=== PATIENT | male | born 1980 | race Caucasian/White ===

== ENCOUNTER 2017-12-30 12:44 | Inpatient (IN) | payer OTHER ==
[~2017-12-30] VITALS: Ht 175.3 cm; Wt 61.7 kg
[2017-12-30 13:38] LABS: BASOPHILS 0.3 % (0-2); EOSINOPHILS 0.1 % (0-7); HEMATOCRIT 46.7 % (42.0-54.0); IMMATURE GRANULOCYTES 0.1 % (0-5); LYMPHOCYTES 12.5 % (15-50); MCH 31.6 pg (26.0-34.0); MCHC 34.3 g/dL (31.0-37.0); MCV 92.1 fL (80.0-100.0); MEAN PLATELET VOLUME 9.9 fL (7.4-10.4); MONOCYTES 7.6 % (2-11); NEUTROPHILS 79.4 % (40-80); PLATELET COUNT 201 10x3/uL (130-400); RBC 5.07 10x6/uL (4.20-6.10); RDW 13.5 % (11.5-14.5); WBC 7.9 10x3/uL (4.8-10.8)
[2017-12-30 13:47] LABS: APPEARANCE CLEAR (CLEAR); BACTERIA FEW /hpf (NONE SEEN); BILIRUBIN NEGATIVE (NEGATIVE); COLOR YELLOW (YELLOW); EPITHELIAL CELLS OCC /hpf (0-5); GLUCOSE 1000 mg/dL (NEGATIVE); KETONE LARGE mg/dL (NEGATIVE); NITRITE NEGATIVE (NEGATIVE); PROTEIN 1+ mg/dL (NEGATIVE); RED CELLS - URINE RARE /hpf (0-5); UROBILINOGEN NORMAL (NORMAL); WHITE CELLS - URINE OCC /hpf (0-5)
[2017-12-30 13:56] LABS: ALBUMIN 4.6 g/dL (3.4-5.0); ALKALINE PHOSPHATASE 83 U/L (46-116); ALT (SGPT) 71 U/L (10-68); AMYLASE - SERUM 119 U/L (25-115); BILIRUBIN - TOTAL 1.04 mg/dL (0.2-1.3); CALC OSMOLALITY 281 mosm/kg (275-300); CALCIUM 9.6 mg/dL (8.5-10.1); CARBON DIOXIDE 28.6 mmol/L (21.0-32.0); CHLORIDE - SERUM 95 mmol/L (98-107); CREATININE - SERUM 0.7 mg/dL (0.6-1.3); GLUCOSE 275 mg/dL (74-106); LIPASE 1251 U/L (73-393); POTASSIUM - SERUM 4.9 mmol/L (3.5-5.1); SODIUM 136 mmol/L (136-145); UREA NITROGEN 13 mg/dL (7-18); eGFR NON AFRICAN AMERICAN > 90 mL/min (90-120)
[2017-12-30 23:56] VITALS: BP 161/91; BMI 20.1
[2017-12-31 04:23] VITALS: BP 182/99
[2017-12-31 08:37] VITALS: BP 191/104
[2017-12-31 08:58] VITALS: Ht 175.3 cm; Wt 61.7 kg
[2017-12-31 12:45] VITALS: BP 186/98
[2017-12-31 16:43] VITALS: BP 187/109
[2017-12-31 19:51] VITALS: BP 176/103
[2018-01-01 00:10] VITALS: BP 179/107
[2018-01-01 04:45] VITALS: BP 158/99
[2018-01-01 06:06] LABS: BASOPHILS 0.1 % (0-2); EOSINOPHILS 0 % (0-7); HEMATOCRIT 47.9 % (42.0-54.0); HEMOGLOBIN 16.1 g/dL (13.5-17.5); IMMATURE GRANULOCYTES 0.3 % (0-5); LYMPHOCYTES 9.3 % (15-50); MCH 31.9 pg (26.0-34.0); MCHC 33.6 g/dL (31.0-37.0); MEAN PLATELET VOLUME 10.9 fL (7.4-10.4); MONOCYTES 7.6 % (2-11); NEUTROPHILS 82.7 % (40-80); PLATELET COUNT 183 10x3/uL (130-400); RBC 5.04 10x6/uL (4.20-6.10); RDW 13.7 % (11.5-14.5)
[2018-01-01 06:35] LABS: ALBUMIN 4.3 g/dL (3.4-5.0); ALKALINE PHOSPHATASE 90 U/L (46-116); BILIRUBIN - TOTAL 0.95 mg/dL (0.2-1.3); CALCIUM 9.1 mg/dL (8.5-10.1); CHLORIDE - SERUM 95 mmol/L (98-107); CHOL - HDL RATIO 2.6 ratio (2.3-4.9); CHOLESTEROL, TOTAL 303 mg/dL (0-200); CREATININE - SERUM 0.8 mg/dL (0.6-1.3); HDL CHOLESTEROL 118 mg/dL (32-96); LDL CHOLESTEROL 161 mg/dL (0-100); LDL-HDL RATIO 1.4 ratio (1.5-3.5); LIPASE 1420 U/L (73-393); POTASSIUM - SERUM 4.8 mmol/L (3.5-5.1); PROTEIN - SERUM 8.9 g/dL (6.4-8.2); SODIUM 133 mmol/L (136-145); TRIGLYCERIDE 124 mg/dL (30-200); UREA NITROGEN 12 mg/dL (7-18); eGFR NON AFRICAN AMERICAN > 90 mL/min (90-120)
[2018-01-01 06:36] LABS: ALT (SGPT) 50 U/L (10-68); AMYLASE - SERUM 220 U/L (25-115); CALC OSMOLALITY 269 mosm/kg (275-300); GLUCOSE 167 mg/dL (74-106)
[2018-01-01 06:39] LABS: WBC 14.6 10x3/uL (4.8-10.8)
[2018-01-01 08:17] VITALS: BP 153/101
[2018-01-01 11:47] VITALS: BP 150/96
[2018-01-01 15:41] VITALS: BP 177/101
[2018-01-01 21:41] VITALS: BP 150/93
[2018-01-02] VITALS (7 sets, daily range): BP systolic 122–147; BP diastolic 76–97
[2018-01-03 05:13] VITALS: BP 110/70
[2018-01-03 05:38] LABS: BASOPHILS 0.5 % (0-2); EOSINOPHILS 1.4 % (0-7); HEMATOCRIT 39.3 % (42.0-54.0); HEMOGLOBIN 13.3 g/dL (13.5-17.5); IMMATURE GRANULOCYTES 0.3 % (0-5); LYMPHOCYTES 27.6 % (15-50); MCHC 33.8 g/dL (31.0-37.0); MCV 91.6 fL (80.0-100.0); MEAN PLATELET VOLUME 10.8 fL (7.4-10.4); MONOCYTES 9.9 % (2-11); NEUTROPHILS 60.3 % (40-80); RBC 4.29 10x6/uL (4.20-6.10); RDW 12.9 % (11.5-14.5); WBC 6.5 10x3/uL (4.8-10.8)
[2018-01-03 05:42] LABS: PLATELET COUNT 124 10x3/uL (130-400)
[2018-01-03 05:44] LABS: AMYLASE - SERUM 76 U/L (25-115); CALC OSMOLALITY 278 mosm/kg (275-300); CALCIUM 8.5 mg/dL (8.5-10.1); CARBON DIOXIDE 29.3 mmol/L (21.0-32.0); CHLORIDE - SERUM 99 mmol/L (98-107); CREATININE - SERUM 0.7 mg/dL (0.6-1.3); LIPASE 380 U/L (73-393); POTASSIUM - SERUM 3.3 mmol/L (3.5-5.1); SODIUM 136 mmol/L (136-145); UREA NITROGEN 10 mg/dL (7-18); eGFR NON AFRICAN AMERICAN > 90 mL/min (90-120)
[2018-01-03 05:54] LABS: GLUCOSE 242 mg/dL (74-106)
[2018-01-03 09:20] VITALS: BP 125/79
[2018-01-03 14:38] VITALS: BP 106/70
[2018-01-03] MEDS ORDERED: LANTUS SOL100 UNIT/1 SC (15:25)
[2018-01-03 17:07] VITALS: BP 135/80
== END 2018-01-03 18:14 | disposition home or self-care (01) | DRG 440 ==
LOC: D.ER 12:44 → OBSVTIME 17:47 → D.MS 17:47
PROVIDERS: Family Medicine
DX: K85.90 Acute pancreatitis without necrosis or infection, unspecified (principal); K86.0 Alcohol-induced chronic pancreatitis; I10 Essential (primary) hypertension; E11.9 Type 2 diabetes mellitus without complications; S39.012A Strain of muscle, fascia and tendon of lower back, initial encounter; X50.0XXA Overexertion from strenuous movement or load, initial encounter; F10.10 Alcohol abuse, uncomplicated; F12.90 Cannabis use, unspecified, uncomplicated; F41.8 Other specified anxiety disorders

== ENCOUNTER 2018-07-18 07:55 | Emergency (ER) | payer SELFPAY ==
[~2018-07-18] VITALS: Ht 175.3 cm; Wt 78.6 kg
[~2018-07-18 07:55] MED LIST: LANTUS SOL100 UNIT/1 SC
[2018-07-18 08:00] VITALS: Ht 175.3 cm; Wt 78.6 kg
[2018-07-18] MEDS ORDERED: NAPROSYN500 MG PO (09:14)
[2018-07-18 09:25] VITALS: BP 142/80
== END 2018-07-18 09:26 | disposition home or self-care (01) ==
LOC: D.ER 07:55
DX: M77.9 Enthesopathy, unspecified (principal); G40.909 Epilepsy, unspecified, not intractable, without status epilepticus; E11.9 Type 2 diabetes mellitus without complications; I10 Essential (primary) hypertension

== ENCOUNTER 2019-04-30 16:35 | Inpatient (IN) | payer MEDICAID ==
[~2019-04-30] VITALS: Ht 175.3 cm; Wt 63.5 kg
[~2019-04-30 16:35] MED LIST changes: +NAPROSYN500 MG PO
[2019-04-30 17:01] LABS: BASOPHILS 0.2 % (0-2); EOSINOPHILS 1.3 % (0-7); HEMATOCRIT 46.6 % (42.0-54.0); HEMOGLOBIN 15.8 g/dL (13.5-17.5); IMMATURE GRANULOCYTES 0.2 % (0-5); LYMPHOCYTES 14.5 % (15-50); MCH 32.4 pg (26.0-34.0); MCHC 33.9 g/dL (31.0-37.0); MCV 95.5 fL (80.0-100.0); MEAN PLATELET VOLUME 10.6 fL (7.4-10.4); MONOCYTES 8.2 % (2-11); NEUTROPHILS 75.6 % (40-80); PLATELET COUNT 253 10x3/uL (130-400); RBC 4.88 10x6/uL (4.20-6.10); RDW 12.9 % (11.5-14.5); WBC 12.5 10x3/uL (4.8-10.8)
[2019-04-30 17:10] LABS: CALC OSMOLALITY 274 mosm/kg (275-300); CALCIUM 9.5 mg/dL (8.5-10.1); CHLORIDE - SERUM 95 mmol/L (98-107); CREATININE - SERUM 0.9 mg/dL (0.6-1.3); GLUCOSE 262 mg/dL (74-106); SODIUM 134 mmol/L (136-145); UREA NITROGEN 8 mg/dL (7-18); eGFR NON AFRICAN AMERICAN > 90 mL/min (90-120)
[2019-04-30 17:19] LABS: ALKALINE PHOSPHATASE 111 U/L (46-116); ALT (SGPT) 27 U/L (10-68); AMYLASE - SERUM 127 U/L (25-115); BILIRUBIN - TOTAL 0.66 mg/dL (0.2-1.3); LIPASE 1229 U/L (73-393); PROTEIN - SERUM 8.3 g/dL (6.4-8.2); TROPONIN-I < 0.017 ng/mL (0.000-0.060)
[2019-04-30 17:32] LABS: APPEARANCE CLEAR (CLEAR); BILIRUBIN NEGATIVE (NEGATIVE); COLOR YELLOW (YELLOW); GLUCOSE 1000 mg/dL (NEGATIVE); KETONE LARGE mg/dL (NEGATIVE); NITRITE NEGATIVE (NEGATIVE); PROTEIN NEGATIVE (NEGATIVE); UROBILINOGEN NORMAL (NORMAL)
[2019-04-30 17:35] LABS: UDS - AMPHET POSITIVE QUAL (NEGATIVE); UDS - BARB NEGATIVE QUAL (NEGATIVE); UDS - BENZO NEGATIVE QUAL (NEGATIVE); UDS - COCAINE NEGATIVE QUAL (NEGATIVE); UDS - OPIATE NEGATIVE QUAL (NEGATIVE); UDS - PCP NEGATIVE QUAL (NEGATIVE); UDS - THC NEGATIVE QUAL (NEGATIVE)
[2019-04-30 20:00] VITALS: BP 147/100
[2019-04-30 21:00] VITALS: BP 143/99
[2019-04-30] MEDS ORDERED: LISINOPRIL20 MG PO (21:37)
--- NOTE | 2019-04-30 21:39 | NUR ---
PT RECEIVED TO UNIT VIA WHEELCHAIR, TRANSFERS SELF TO ICU BED. PT PLACED ON MONITOR AND FLUIDS STARTED. PRN PAIN MEDICATION GIVEN FOR ABDOMINAL PAIN PER MAR. STATES FEELING WARM WITH THERMOSTAT ADJUSTED. NO OTHER NEEDS MADE KNOWN. CALL LIGHT IN REACH. WILL CONTINUE TO OBSERVE.
[2019-04-30 21:56] VITALS: BP 147/100; BMI 20.7
[2019-04-30 22:00] VITALS: BP 133/93
--- NOTE | 2019-04-30 22:31 | NUR ---
BLOOD TRANSFUSION CONTINUES, TOLERATING WELL. RESTING WITH EYES CLOSED AND CHEST RISING. VSS. CALL LIGHT IN REACH. WILL CONTINUE TO OBSERVE.
--- NOTE | 2019-04-30 22:34 | NUR ---
PT RESTING WITH EYES CLOSED AND CHEST RISING. EASILY AWOKEN TO ENTRY OF ROOM. NO S/S OF DISTRESS. NO NEEDS MADE KNOWN. CALL LIGHT IN REACH. WILL CONTINUE TO OBSERVE.
[2019-04-30 23:00] VITALS: BP 123/88
[2019-05-01] VITALS (15 sets, daily range): BP systolic 99–130; BP diastolic 65–94; Ht 175.3 cm; Wt 63.5 kg
[2019-05-01 00:18] LABS: CALC OSMOLALITY 274 mosm/kg (275-300); CALCIUM 8.4 mg/dL (8.5-10.1); CHLORIDE - SERUM 103 mmol/L (98-107); CREATININE - SERUM 0.8 mg/dL (0.6-1.3); POTASSIUM - SERUM 4.1 mmol/L (3.5-5.1); SODIUM 136 mmol/L (136-145); UREA NITROGEN 7 mg/dL (7-18); eGFR NON AFRICAN AMERICAN > 90 mL/min (90-120)
[2019-05-01 00:22] LABS: GLUCOSE 186 mg/dL (74-106)
--- NOTE | 2019-05-01 00:51 | NUR ---
PT COMPLAINS OF ABDOMINAL PAIN 01/07, PRN PAIN MEDICATION GIVEN PER ORDER. WILL CONTINUE TO OBSERVE.
[2019-05-01 04:04] LABS: BASOPHILS 0.3 % (0-2); EOSINOPHILS 2.2 % (0-7); HEMATOCRIT 40.6 % (42.0-54.0); HEMOGLOBIN 13.7 g/dL (13.5-17.5); IMMATURE GRANULOCYTES 0.1 % (0-5); LYMPHOCYTES 27.8 % (15-50); MCH 31.8 pg (26.0-34.0); MCHC 33.7 g/dL (31.0-37.0); MCV 94.2 fL (80.0-100.0); MEAN PLATELET VOLUME 10.5 fL (7.4-10.4); MONOCYTES 8.5 % (2-11); NEUTROPHILS 61.1 % (40-80); RBC 4.31 10x6/uL (4.20-6.10); RDW 12.8 % (11.5-14.5)
[2019-05-01 04:11] LABS: PLATELET COUNT 198 10x3/uL (130-400); WBC 7.2 10x3/uL (4.8-10.8)
[2019-05-01 04:14] LABS: APTT 29.4 SECONDS (22.8-39.4); INR 1.06 (0.85-1.17); PROTIME 13.3 SECONDS (11.6-15.0)
[2019-05-01 04:28] LABS: AMYLASE - SERUM 98 U/L (25-115); CALC OSMOLALITY 277 mosm/kg (275-300); CALCIUM 8.3 mg/dL (8.5-10.1); CARBON DIOXIDE 23.6 mmol/L (21.0-32.0); CHLORIDE - SERUM 106 mmol/L (98-107); CHOL - HDL RATIO 2.3 ratio (2.3-4.9); CHOLESTEROL, TOTAL 144 mg/dL (0-200); CREATININE - SERUM 0.9 mg/dL (0.6-1.3); HDL CHOLESTEROL 63 mg/dL (32-96); LDL CHOLESTEROL 70 mg/dL (0-100); LDL-HDL RATIO 1.1 ratio (1.5-3.5); LIPASE 873 U/L (73-393); MAGNESIUM - SERUM 1.4 mg/dL (1.8-2.4); PHOSPHOROUS 3.2 mg/dL (2.5-4.9); POTASSIUM - SERUM 3.9 mmol/L (3.5-5.1); SODIUM 140 mmol/L (136-145); TRIGLYCERIDE 58 mg/dL (30-200); UREA NITROGEN 7 mg/dL (7-18); eGFR NON AFRICAN AMERICAN > 90 mL/min (90-120)
[2019-05-01 04:40] LABS: GLUCOSE 122 mg/dL (74-106)
[2019-05-01 04:56] LABS: KETONE - SERUM SMALL mg/dL (NEGATIVE)
--- NOTE | 2019-05-01 07:15 | NUR ---
REPORT RECEIVED. PT RESTING QUIETLY IN BED. IV TO RIGHT UPPER ARM WITH NS AND MAGNESIUM INFUSING. PT DENIES ANY NAUSEA AT THIS TIME. HE GETS BLOOD SUGAR CHECKS Q4H. PT COMPLAINS OF EPIGASTRIC PAIN. WILL GIVE PAIN MEDICATION WHEN AVAILABLE AGAIN. ASSESSMENT COMPLETED. VSS. WILL CONTINUE TO MONITOR.
--- NOTE | 2019-05-01 09:22 | NUR ---
RATED PAIN 7 OUT OF 10. GAVE DILAUDID. OTHER MEDICATIONS ADMINISTERED. VSS. NO OTHER NEEDS AT THIS TIME. WILL CONTINUE TO MONITOR.
--- NOTE | 2019-05-01 09:46 | MORECARE ---
CASE MANAGEMENT DISCHARGE SUMMARY PATIENT: KRISTI DUONG UNIT: [id number] ADM DATE: 04/30/19 AGE: 38 : 82 SEX: M ROOM/BED: D.2302 AUTHOR: CARY,DOC PHYSICIAN: REFERRING PHYSICIAN: WENDY ALVES DO DATE OF SERVICE: 05/01/19 Discharge Plan Patient Name: KRISTI DUONG Facility: [facility]:[place] : 1980 Planned Disposition: Home Anticipated Discharge Date: 05/25/19 Discharge Date: Expected LOS: 25 Initial Reviewer: [email or web address] Initial Review Date: 04/30/2019 Generated: 05/01/19 10:46 am DCP- Discharge Planning Updated by [email or web address]: Magda Taveras on 05/01/19 8:[address] DC PLAN: Return home alone. ANTICIPATED DC NEEDS: Assistance with diabetes supplies and Medication. CM met with patient to complete initial dc planning assessment. CM educated patient on the CM role and verbal consent given by patient to complete assessment. CM verified patient's address, phone number, and emergency contact phone numbers. Patient lives at home alone. Stated he was independent in his care at home. He reports he does not have a glucometer because the just break. CM discussed the cost of a glucometer at [facility] and he said yes he is aware and they usually just give him one. He stated he cant afford his medication either. CM asked if he worked and he stated "no, but I got it covered". He was very vague with his answers and would not give much information for CM to be able to better assist him. At discharge patient plans to return home alone and feels this is a safe discharge. CM discussed availability of home health, rehab services, and medical equipment. Patient denied further known discharge needs at this time. Transportation provider at discharge will be his friend. CM will continue to follow and will assist as needed with dc plans/needs. Magda Taveras RN, [facility] DCPIA - Discharge Planning Initial Assessment Updated by [email or web address]: Magda Taveras on 05/01/19 9:41 am * Is the patient Alert and Oriented? Yes * PCP Dr. Hernandez * Pharmacy [facility] the [facility] * Preadmission Environment Home Alone * ADLs Independent * Equipment None * Other Equipment glucometer broke * List name and contact numbers for known caregivers / representatives who currently or will assist patient after discharge: Nagi Warner - [place] - [phone] * Verbal permission to speak to the caregivers and representatives has been obtained from the patient. Yes * Community resources currently utilized None * Additional services required to return to the preadmission environment? No * Can the patient safely return to the preadmission environment? Yes * Has this patient been hospitalized within the prior 30 days at any hospital? No Patient Name: KRISTI DUONG Page [id number] at 0946 All edits/amendments must be made on the electronic document DICTATION DATE: 05/01/19945 WIND TURBINE INSTALLER: CLIFF 05/01/19945 RPT#: [id number] DC DATE: STATUS: ADM IN [facility] [address] [place] [address] END OF REPORT
--- NOTE | 2019-05-01 09:58 | NUR ---
PT AWAKE AND FOLLOWING DIRECTIONS. WILL CONT TO WEEN. RT WEENING PER PROTOCOL.
--- NOTE | 2019-05-01 11:15 | NUR ---
BLOOD SUGAR 188. COVERED WITH 4 UNITS. ICE GIVEN TO PT (OKAYED BY DR ALVES). NO OTHER NEEDS AT THIS TIME.
--- NOTE | 2019-05-01 13:26 | NUR ---
PAIN MEDICATION GIVEN PER REQUEST. ICE CHIPS GIVEN, WELL. VSS. WILL CONTINUE TO MONITOR.
--- NOTE | 2019-05-01 15:38 | NUR ---
BS 129. NO COVERAGE NEEDED. VSS.
--- NOTE | 2019-05-01 16:36 | NUR ---
REPORT GIVEN TO KURT HUNG. PT TRANSFERRED TO 2227.
--- NOTE | 2019-05-01 18:55 | NUR ---
PATIENT IN BED WITH IV INTACT. MAD AND UPSET BECAUSE HE CANT EAT. DOESNT LIKE CONTINOUS IV INFUSION. REFUSES TELE AT THIS TIME. RECIEVED DILAUDID AND ATIVAN EARLIER. CALL LIGHT WITHIN REACH.
--- NOTE | 2019-05-01 21:00 | NUR ---
UP AT ONRMA IN ROOM. NO COMPLAINTS VOICED. RESP EVEN AND UNALBORED. IV TO RFA INTACT WITHOUT REDNESS OR EDEMA NOTED. CL IN REACH
[2019-05-02 01:05] VITALS: BP 143/82
--- NOTE | 2019-05-02 04:17 | NUR ---
I have reviewed this patient and I concur with the Shift Assessment completed by the Licensed Practical Nurse today this shift.
[2019-05-02 05:16] VITALS: BP 150/80
[2019-05-02 06:22] LABS: BASOPHILS 0.5 % (0-2); EOSINOPHILS 4.1 % (0-7); HEMATOCRIT 36.4 % (42.0-54.0); HEMOGLOBIN 12.2 g/dL (13.5-17.5); IMMATURE GRANULOCYTES 0.3 % (0-5); LYMPHOCYTES 29.3 % (15-50); MCH 31.9 pg (26.0-34.0); MCHC 33.5 g/dL (31.0-37.0); MCV 95.3 fL (80.0-100.0); MEAN PLATELET VOLUME 10.6 fL (7.4-10.4); NEUTROPHILS 57.8 % (40-80); PLATELET COUNT 177 10x3/uL (130-400); RBC 3.82 10x6/uL (4.20-6.10); RDW 12.8 % (11.5-14.5); WBC 6.5 10x3/uL (4.8-10.8)
[2019-05-02 06:40] LABS: ALKALINE PHOSPHATASE 75 U/L (46-116); BILIRUBIN - TOTAL 0.28 mg/dL (0.2-1.3); CALCIUM 7.8 mg/dL (8.5-10.1); CARBON DIOXIDE 25.4 mmol/L (21.0-32.0); CHLORIDE - SERUM 103 mmol/L (98-107); MAGNESIUM - SERUM 1.5 mg/dL (1.8-2.4); PHOSPHOROUS 2.9 mg/dL (2.5-4.9); POTASSIUM - SERUM 3.8 mmol/L (3.5-5.1); SODIUM 138 mmol/L (136-145); UREA NITROGEN 6 mg/dL (7-18)
[2019-05-02 06:43] LABS: ALBUMIN 2.8 g/dL (3.4-5.0); ALT (SGPT) 19 U/L (10-68); CALC OSMOLALITY 277 mosm/kg (275-300); CREATININE - SERUM 0.6 mg/dL (0.6-1.3); GLUCOSE 178 mg/dL (74-106); PROTEIN - SERUM 6.1 g/dL (6.4-8.2); eGFR NON AFRICAN AMERICAN > 90 mL/min (90-120)
[2019-05-02 07:13] LABS: RAPID PLASMA REAGIN Non Reactive (Non Reactive)
--- NOTE | 2019-05-02 08:00 | NUR ---
PATIENT IN BED WITH EYES CLOSED. THREW AWAY COFFEE CUP AND M&M SINGING WAITER OR WAITRESS OF BS TABLE. PATIENT IV INTACT. CALL LIGHT WITHIN REACH.
--- NOTE | 2019-05-02 10:00 | NUR ---
PATIENT UP AMBULATING IN HALLWAY.
[2019-05-02 12:39] LABS: AMYLASE - SERUM 118 U/L (25-115); LIPASE 1038 U/L (73-393)
--- NOTE | 2019-05-02 13:20 | NUR ---
PATIENT 5TH GRADE TEACHER SET UP. EXPLAINED CAN NOT LEAVE FLOOR WITH 5TH GRADE TEACHER. VERBALIZED UNDERSTANDING. ALSO FOUND COFFEE CUP IN SINK EMPTY. REMINDED PATIENT THAT HE IS NOT ALLOWED TO DRINK OR EAT ANYTHING. PATIENT VERBALIZED UNDERSTANDING. CALL LIGHT WITHIN REACH. FRIEND AT BEDSIDE.
[2019-05-02 14:24] VITALS: BP 104/69
--- NOTE | 2019-05-02 17:33 | NUR ---
PATIENT BS 333. PATIENT STATED THAT HE DRANK HOT CHOCOLATE. REMINDED PATIENT AGAIN THAT HE IS NOT ALLOWED TO EAT OR DRINK ANYTHING BECAUSE OF HIS PANCREATITIS. PATIENT STATED " THATS NOT FAIR" . NOTIFIED DR. ALVES EARLIER OF PATIENT EATING AND DRINKING. CALL LIGHT WITHIN REACH.
[2019-05-02 19:30] VITALS: BP 106/69
--- NOTE | 2019-05-02 20:30 | NUR ---
RESTING QUIELTY WITH NO DISTRESS NOTED. IV TO DIONY INTACT WITHOUT REDNESS OR KENZIE NOTED. CL IN REACH
--- NOTE | 2019-05-02 23:17 | NUR ---
I have reviewed this patient and I concur with the Shift Assessment completed by the Licensed Practical Nurse today this shift.
[2019-05-03 00:30] VITALS: BP 111/78; BP 120/70
[2019-05-03 04:30] VITALS: BP 105/64
--- NOTE | 2019-05-03 05:37 | NUR ---
fsbs 349.ASKED PATIENT WHY BS WAS SO HIG THIS MORNING.STATES" BEEN DRINKING HOT CHOCOLATE'. INSTRUCTED PATIENT ON DIET ORDER FOR ICE CHIPS ONLY STATES UNDERSTANDING.
[2019-05-03 06:17] LABS: BASOPHILS 0.5 % (0-2); EOSINOPHILS 3.2 % (0-7); HEMATOCRIT 34.5 % (42.0-54.0); HEMOGLOBIN 11.4 g/dL (13.5-17.5); IMMATURE GRANULOCYTES 0.2 % (0-5); LYMPHOCYTES 35.1 % (15-50); MCH 31.3 pg (26.0-34.0); MCV 94.8 fL (80.0-100.0); MEAN PLATELET VOLUME 10.5 fL (7.4-10.4); MONOCYTES 7.4 % (2-11); NEUTROPHILS 53.6 % (40-80); PLATELET COUNT 189 10x3/uL (130-400); RBC 3.64 10x6/uL (4.20-6.10); RDW 12.7 % (11.5-14.5)
[2019-05-03 06:20] LABS: WBC 4.1 10x3/uL (4.8-10.8)
[2019-05-03 06:40] LABS: ALBUMIN 2.6 g/dL (3.4-5.0); ALKALINE PHOSPHATASE 69 U/L (46-116); ALT (SGPT) 18 U/L (10-68); AMYLASE - SERUM 91 U/L (25-115); BILIRUBIN - TOTAL 0.18 mg/dL (0.2-1.3); CALCIUM 7.8 mg/dL (8.5-10.1); CARBON DIOXIDE 30.1 mmol/L (21.0-32.0); CHLORIDE - SERUM 105 mmol/L (98-107); CREATININE - SERUM 0.7 mg/dL (0.6-1.3); LIPASE 957 U/L (73-393); MAGNESIUM - SERUM 1.8 mg/dL (1.8-2.4); PHOSPHOROUS 3.6 mg/dL (2.5-4.9); POTASSIUM - SERUM 3.8 mmol/L (3.5-5.1); PROTEIN - SERUM 5.8 g/dL (6.4-8.2); SODIUM 140 mmol/L (136-145); eGFR NON AFRICAN AMERICAN > 90 mL/min (90-120)
[2019-05-03 06:45] LABS: CALC OSMOLALITY 289 mosm/kg (275-300); GLUCOSE 366 mg/dL (74-106); UREA NITROGEN 2 mg/dL (7-18)
--- NOTE | 2019-05-03 07:15 | NUR ---
REPORT RECIEVED ASSUMED CARE. PATIENT IN BED RESTING . NIGHT NURSE STATED PATIENT HAD BEEN UP DRINKING HOT CHOCOLATE AFTER BEING TOLD NPO. PATIENT EYES CLOSED AND SLEEPING AT THIS TIME.
[2019-05-03 08:09] VITALS: BP 106/73
--- NOTE | 2019-05-03 08:45 | NUR ---
PATIENT IV RESTARTED IN LEFT FA X 1 STICK 22 G. IV IN RIGHT UPPER ARM RED AND PAINFUL. REMOVED WITH CATH TIP INTACT. PATIENT TOLERATED WITH SMALL AMOUNT OF PAIN. PATIENT HAS CRACKERS ON BEDSIDE TABLE. EXPLAINED AT THIS TIME TO PATIENT THAT HE IS NOT ALLOWED TO EAT OR DRINK AND THAT HE IS ONLY ALLOWED TO HAVE ICE CHIPS AND SIPS WITH MEDS. VERBALIZED UNDERSTANDING. IVF AND EXERCISER RESTARTED. UNABLE TO CHECK GLUCOSE AT THIS TIME BC GLUCOSE MONITOR BATTERIES ARE . HAVE TO WAIT TO RECHARGE THEN WILL CHECK. CALL LIGHT WITHIN REACH.
[2019-05-03 12:28] VITALS: BP 130/84
[2019-05-03 16:54] VITALS: BP 119/74
--- NOTE | 2019-05-03 17:09 | NUR ---
PATIENT CONVERTER SKIMMER DC'D ORDERED. MVI INFUSING. PATIENT SITTING UP ON THE SIDE OF THE BED EATING. IV INTACT. CALL LIGHT WITHIN REACH.
--- NOTE | 2019-05-03 17:30 | NUR ---
PATIENT TURNED IVF OFF AND DISCONNECTED IT. STATED HE DOESNT NEED IT. IV INTACT. NO COMPLAINTS. CALL LIGHT WITHIN REACH.
[2019-05-03 19:30] VITALS: BP 138/87
--- NOTE | 2019-05-03 21:20 | NUR ---
PATIENT SITTING UP IN BED EATING ICE CREAM.INFORMED PATIENT ICE CREAM WOULD INCREASE HIS FSBS. STATES " CANT HELP THAT IM HUNGRY. EMPTY ICE CREAM CONTAINER NOTED ON BEDSIDE TABLE. CUP OF HOT CHOCOLATE ALSO NOTED ON TABLE. FSBS 462. GIVEN 20 UNITS PER SS.
--- NOTE | 2019-05-03 23:58 | NUR ---
FSBS 221. REFUSES INSULIN AT THIS TIME.
[2019-05-04 04:00] VITALS: BP 112/73
--- NOTE | 2019-05-04 04:44 | NUR ---
I have reviewed this patient and I concur with the Shift Assessment completed by the Licensed Practical Nurse today this shift.
[2019-05-04 06:28] LABS: BASOPHILS 0.5 % (0-2); EOSINOPHILS 2.1 % (0-7); HEMATOCRIT 35.8 % (42.0-54.0); HEMOGLOBIN 11.9 g/dL (13.5-17.5); IMMATURE GRANULOCYTES 0.2 % (0-5); MCH 31.5 pg (26.0-34.0); MCHC 33.2 g/dL (31.0-37.0); MCV 94.7 fL (80.0-100.0); MEAN PLATELET VOLUME 10.9 fL (7.4-10.4); MONOCYTES 8.8 % (2-11); NEUTROPHILS 59.4 % (40-80); PLATELET COUNT 223 10x3/uL (130-400); RBC 3.78 10x6/uL (4.20-6.10); RDW 12.6 % (11.5-14.5)
[2019-05-04 06:45] LABS: WBC 5.7 10x3/uL (4.8-10.8)
[2019-05-04 07:02] LABS: ALBUMIN 2.8 g/dL (3.4-5.0); ALKALINE PHOSPHATASE 78 U/L (46-116); ALT (SGPT) 20 U/L (10-68); AMYLASE - SERUM 99 U/L (25-115); BILIRUBIN - TOTAL 0.14 mg/dL (0.2-1.3); CALC OSMOLALITY 282 mosm/kg (275-300); CALCIUM 8.3 mg/dL (8.5-10.1); CARBON DIOXIDE 33.2 mmol/L (21.0-32.0); CHLORIDE - SERUM 103 mmol/L (98-107); CREATININE - SERUM 0.6 mg/dL (0.6-1.3); GLUCOSE 197 mg/dL (74-106); LIPASE 1054 U/L (73-393); MAGNESIUM - SERUM 1.6 mg/dL (1.8-2.4); PHOSPHOROUS 4.5 mg/dL (2.5-4.9); PROTEIN - SERUM 5.8 g/dL (6.4-8.2); SODIUM 141 mmol/L (136-145); UREA NITROGEN 4 mg/dL (7-18); eGFR NON AFRICAN AMERICAN > 90 mL/min (90-120)
[2019-05-04 08:51] VITALS: BP 119/83
--- NOTE | 2019-05-04 09:00 | NUR ---
ASSESSMENT PER FLOW SHEET. PT IS WITHOUT DISTRESS.HAS BEEN UP THIS AM WALKING IN HALLS.CALL LIGHT IN REACH
[2019-05-04 12:30] VITALS: BP 125/86
--- NOTE | 2019-05-04 14:42 | MORECARE ---
CASE MANAGEMENT DISCHARGE SUMMARY PATIENT: KRISTI DUONG UNIT: [id number] ADM DATE: 04/30/19 AGE: 38 : 82 SEX: M ROOM/BED: D.2227 AUTHOR: HINA TOWNSEND PHYSICIAN: REFERRING PHYSICIAN: WENDY ALVES DO DATE OF SERVICE: 05/04/19 Discharge Plan Patient Name: KRISTI DUONG Facility: [facility]:[place] : 1980 Planned Disposition: Home Anticipated Discharge Date: 05/25/19 Discharge Date: Expected LOS: 25 Initial Reviewer: [email or web address] Initial Review Date: 04/30/2019 Generated: 05/04/19 3:41 pm Comments DCP- Discharge Planning Updated by [email or web address]: Carli Donnelly on 05/04/19 1:[address] Patient Name: KRISTI DUONG Encounter No: [id number] : 1980 Primary Insurance: MEDICAID [place] PENDING Anticipated DC Date: 05-25-2019 Planned Disposition: Home External Planned Provider: : DCP follow-up note: Patient in agreement with discharge plan. No changes to plan. States he will call someone to pick him up. I gave him the list of local substance abuse centers. I also gave him a GoodRx card and a hand out on the number to call for assistance with insulin solostar pen. Case management will follow and assist as needed. Carli Donnelly DCP- Discharge Planning Updated by [email or web address]: Magda Taveras on 05/01/19 9:[address] DC PLAN: Return home alone. ANTICIPATED DC NEEDS: Assistance with diabetes supplies and Medication. CM met with patient to complete initial dc planning assessment. CM educated patient on the CM role and verbal consent given by patient to complete assessment. CM verified patient's address, phone number, and emergency contact phone numbers. Patient lives at home alone. Stated he was independent in his care at home. He reports he does not have a glucometer because the just break. CM discussed the cost of a glucometer at [facility] and he said yes he is aware and they usually just give him one. He stated he cant afford his medication either. CM asked if he worked and he stated "no, but I got it covered". He was very vague with his answers and would not give much information for CM to be able to better assist him. At discharge patient plans to return home alone and feels this is a safe discharge. CM discussed availability of home health, rehab services, and medical equipment. Patient denied further known discharge needs at this time. Transportation provider at discharge will be his friend. CM will continue to follow and will assist as needed with dc plans/needs. Magda Taveras RN, [facility] DCPIA - Discharge Planning Initial Assessment Updated by [email or web address]: Magda Taveras on 05/01/19 9:41 am * Is the patient Alert and Oriented? Yes * PCP Dr. Hernandez * Pharmacy [facility] the [facility] * Preadmission Environment Home Alone * ADLs Independent * Equipment None * Other Equipment glucometer broke * List name and contact numbers for known caregivers / representatives who currently or will assist patient after discharge: Nagi Warner [facility] - [phone] * Verbal permission to speak to the caregivers and representatives has been obtained from the patient. Yes * Community resources currently utilized None * Additional services required to return to the preadmission environment? No * Can the patient safely return to the preadmission environment? Yes * Has this patient been hospitalized within the prior 30 days at any hospital? No Last DP export: 05/01/19 9:46 a Patient Name: KRISTI DUONG Page [id number] at 1442 All edits/amendments must be made on the electronic document DICTATION DATE: 05/04/191440 GAS SCRUBBER OPERATOR: CLIFF 05/04/191440 RPT#: [id number] DC DATE: STATUS: ADM IN [facility] [address] [place] [address] END OF REPORT
--- NOTE | 2019-05-04 14:50 | NUR ---
WANTS TO SHOWER BEFORE DC HOME. IV DCD WITH CATH TIP INTACT.
[2019-05-04] MEDS ORDERED: LANTUS SOL100 UNIT/1 SC (17:09)
[2019-05-04] MEDS ORDERED: LISINOPRIL20 MG PO (17:09)
--- NOTE | 2019-05-04 17:10 | NUR ---
SPOKE WITH DR CORONA, DISCHARGE MEDS SENT TO [facility] PER DR. CORONA
--- NOTE | 2019-05-04 17:19 | NUR ---
PT HAS LEFT AMBULATORY BEFORE I COULD SPEAK TO HIM ABOUT MEDICATIONS CALLED TO [facility] PER DR CORONA
[2019-05-04 20:06] LABS: CHLAMYDIA TRACHOMATIS, NAA Negative (Negative)
--- NOTE | 2019-05-07 09:36 | MORECARE ---
CASE MANAGEMENT DISCHARGE SUMMARY PATIENT: KRISTI DUONG UNIT: [id number] ADM DATE: 04/30/19 AGE: 38 : 82 SEX: M ROOM/BED: D.2227 AUTHOR: HINA TOWNSEND PHYSICIAN: REFERRING PHYSICIAN: WENDY ALVES DO DATE OF SERVICE: 05/07/19 Discharge Plan Patient Name: KRISTI DUONG Facility: [facility]:[place] : 1980 Planned Disposition: Home Anticipated Discharge Date: 05/25/19 Discharge Date: 05/04/2019 Expected LOS: 25 Initial Reviewer: [email or web address] Initial Review Date: 04/30/2019 Generated: 05/07/19 10:35 am Comments DCP- Discharge Planning Updated by [email or web address]: Carli Donnelly on 05/04/19 1:[address] Patient Name: KRISTI DUONG Encounter No: [id number] : 1980 Primary Insurance: MEDICAID [place] PENDING Anticipated DC Date: 05-25-2019 Planned Disposition: Home External Planned Provider: : DCP follow-up note: Patient in agreement with discharge plan. No changes to plan. States he will call someone to pick him up. I gave him the list of local substance abuse centers. I also gave him a GoodRx card and a hand out on the number to call for assistance with insulin solostar pen. Case management will follow and assist as needed. Carli Donnelly DCP- Discharge Planning Updated by [email or web address]: Magda Taveras on 05/01/19 9:[address] DC PLAN: Return home alone. ANTICIPATED DC NEEDS: Assistance with diabetes supplies and Medication. CM met with patient to complete initial dc planning assessment. CM educated patient on the CM role and verbal consent given by patient to complete assessment. CM verified patient's address, phone number, and emergency contact phone numbers. Patient lives at home alone. Stated he was independent in his care at home. He reports he does not have a glucometer because the just break. CM discussed the cost of a glucometer at [facility] and he said yes he is aware and they usually just give him one. He stated he cant afford his medication either. CM asked if he worked and he stated "no, but I got it covered". He was very vague with his answers and would not give much information for CM to be able to better assist him. At discharge patient plans to return home alone and feels this is a safe discharge. CM discussed availability of home health, rehab services, and medical equipment. Patient denied further known discharge needs at this time. Transportation provider at discharge will be his friend. CM will continue to follow and will assist as needed with dc plans/needs. Magda Taveras RN, [facility] DCPIA - Discharge Planning Initial Assessment Updated by [email or web address]: Magda Taveras on 05/01/19 9:41 am * Is the patient Alert and Oriented? Yes * PCP Dr. Hernandez * [facility] [place] * Preadmission Environment Home Alone * ADLs Independent * Equipment None * Other Equipment glucometer broke * List name and contact numbers for known caregivers / representatives who currently or will assist patient after discharge: Nagi Warner [facility] - [phone] * Verbal permission to speak to the caregivers and representatives has been obtained from the patient. Yes * Community resources currently utilized None * Additional services required to return to the preadmission environment? No * Can the patient safely return to the preadmission environment? Yes * Has this patient been hospitalized within the prior 30 days at any hospital? No Last DP export: 05/04/19 1:42 p Patient Name: KRISTI DUONG Page [phone] at 0936 All edits/amendments must be made on the electronic document DICTATION DATE: 05/07/19934 FORKLIFT TRUCK MECHANIC: CLIFF 05/07/19934 RPT#: [id number] DC DATE:05/04/19 STATUS: DIS IN [facility] [address] [place] [address] END OF REPORT
== END 2019-05-04 17:21 | disposition home or self-care (01) | DRG 638 ==
LOC: D.ER 16:35 → D.ICU 19:22 → D.MS 05-01 16:35
PROVIDERS: Family Medicine; ADMIT Family Medicine; ATTEND Family Medicine
DX: E11.10 Type 2 diabetes mellitus with ketoacidosis without coma (principal); E87.1 Hypo-osmolality and hyponatremia; K86.1 Other chronic pancreatitis; I10 Essential (primary) hypertension; Z91.14 Patient's other noncompliance with medication regimen; F41.8 Other specified anxiety disorders; F15.10 Other stimulant abuse, uncomplicated; F10.10 Alcohol abuse, uncomplicated

== ENCOUNTER 2019-06-28 08:49 | Inpatient (IN) | payer MEDICAID, OTHER ==
[~2019-06-28] VITALS: Ht 175.3 cm; Wt 64.6 kg
[~2019-06-28 08:49] MED LIST changes: +LISINOPRIL20 MG PO
--- NOTE | 2019-06-28 09:06 | NUR ---
URINE SPECIMEN SENT TO LAB
[2019-06-28 09:17] LABS: BASOPHILS 0.4 % (0-2); EOSINOPHILS 0.5 % (0-7); HEMATOCRIT 45.8 % (42.0-54.0); HEMOGLOBIN 15.8 g/dL (13.5-17.5); IMMATURE GRANULOCYTES 0.3 % (0-5); LYMPHOCYTES 24.4 % (15-50); MCH 31.3 pg (26.0-34.0); MCHC 34.5 g/dL (31.0-37.0); MCV 90.7 fL (80.0-100.0); MEAN PLATELET VOLUME 10.5 fL (7.4-10.4); NEUTROPHILS 69.4 % (40-80); RBC 5.05 10x6/uL (4.20-6.10); RDW 12.5 % (11.5-14.5); WBC 12.2 10x3/uL (4.8-10.8)
[2019-06-28 09:18] LABS: PLATELET COUNT 418 10x3/uL (130-400)
[2019-06-28 09:23] LABS: APPEARANCE CLEAR (CLEAR); BILIRUBIN NEGATIVE (NEGATIVE); COLOR STRAW (YELLOW); GLUCOSE 1000 mg/dL (NEGATIVE); KETONE SMALL mg/dL (NEGATIVE); NITRITE NEGATIVE (NEGATIVE); PROTEIN NEGATIVE (NEGATIVE); UROBILINOGEN NORMAL (NORMAL)
[2019-06-28 09:39] LABS: ALBUMIN 3.7 g/dL (3.4-5.0); ALKALINE PHOSPHATASE 139 U/L (46-116); ALT (SGPT) 20 U/L (10-68); AMYLASE - SERUM 131 U/L (25-115); BILIRUBIN - TOTAL 0.69 mg/dL (0.2-1.3); CALC OSMOLALITY 283 mosm/kg (275-300); CALCIUM 9.3 mg/dL (8.5-10.1); CARBON DIOXIDE 28.6 mmol/L (21.0-32.0); CHLORIDE - SERUM 91 mmol/L (98-107); CREATININE - SERUM 1.1 mg/dL (0.6-1.3); LIPASE 769 U/L (73-393); POTASSIUM - SERUM 4.4 mmol/L (3.5-5.1); PROTEIN - SERUM 8.2 g/dL (6.4-8.2); SODIUM 131 mmol/L (136-145); UREA NITROGEN 18 mg/dL (7-18); eGFR NON AFRICAN AMERICAN 80 mL/min (90-120)
[2019-06-28 09:42] LABS: GLUCOSE 449 mg/dL (74-106)
[2019-06-28 10:29] VITALS: BP 129/90
[2019-06-28 14:07] LABS: UDS - AMPHET NEGATIVE QUAL (NEGATIVE); UDS - BARB NEGATIVE QUAL (NEGATIVE); UDS - BENZO NEGATIVE QUAL (NEGATIVE); UDS - COCAINE NEGATIVE QUAL (NEGATIVE); UDS - OPIATE NEGATIVE QUAL (NEGATIVE); UDS - PCP NEGATIVE QUAL (NEGATIVE); UDS - THC NEGATIVE QUAL (NEGATIVE)
--- NOTE | 2019-06-28 14:09 | NUR ---
RECEIVED REPORT FROM JOSE ALBERTO AT 1330. PATIENT TO UNIT SOON FROM ED.
--- NOTE | 2019-06-28 14:19 | NUR ---
PATIENT ARRIVED TO UNIT VIA WHEELCHAIR FROM ED.
[2019-06-28 15:24] VITALS: BP 119/91; BMI 18.7
[2019-06-28 16:44] VITALS: BP 119/91
--- NOTE | 2019-06-28 17:09 | NUR ---
FSBS 217. 8 UNITS HUMALOG ADMINISTERED PER SLIDING SCALE.
--- NOTE | 2019-06-28 17:10 | NUR ---
MEDICATED FOR ANXIETY AT THIS TIME. NO DISTRESS
--- NOTE | 2019-06-28 17:18 | NUR ---
MEDICATED FOR PAIN AT THIS TIME. NO DISTRESS. CALL LIGHT WITHIN REACH.
[2019-06-28 20:00] VITALS: BP 111/74
[2019-06-29] VITALS: BP 122/83
[2019-06-29 04:00] VITALS: BP 120/87
[2019-06-29 05:35] LABS: BASOPHILS 0.3 % (0-2); EOSINOPHILS 1.9 % (0-7); HEMOGLOBIN 13.4 g/dL (13.5-17.5); IMMATURE GRANULOCYTES 0.1 % (0-5); LYMPHOCYTES 34.1 % (15-50); MCH 30.3 pg (26.0-34.0); MCHC 33.5 g/dL (31.0-37.0); MCV 90.5 fL (80.0-100.0); MEAN PLATELET VOLUME 10.4 fL (7.4-10.4); MONOCYTES 6.9 % (2-11); NEUTROPHILS 56.7 % (40-80); PLATELET COUNT 362 10x3/uL (130-400); RBC 4.42 10x6/uL (4.20-6.10); RDW 12.7 % (11.5-14.5); WBC 9.7 10x3/uL (4.8-10.8)
[2019-06-29 06:03] LABS: CALCIUM 8.3 mg/dL (8.5-10.1); CARBON DIOXIDE 33.9 mmol/L (21.0-32.0); CHLORIDE - SERUM 96 mmol/L (98-107); SODIUM 134 mmol/L (136-145); UREA NITROGEN 20 mg/dL (7-18)
[2019-06-29 06:07] LABS: CALC OSMOLALITY 278 mosm/kg (275-300); CREATININE - SERUM 0.6 mg/dL (0.6-1.3); GLUCOSE 247 mg/dL (74-106); eGFR NON AFRICAN AMERICAN > 90 mL/min (90-120)
--- NOTE | 2019-06-29 07:24 | NUR ---
PT RESTING. RR EVEN AND UNLABORED. DENIES NEEDS OR PAIN AT THIS TIME. BED IN LOWEST POSTION.CALL LIGHT WITHIN REACH. WILL CONTINUE TO MONITOR.
[2019-06-29 08:41] VITALS: BP 105/70
[2019-06-29 13:18] VITALS: BP 107/78
--- NOTE | 2019-06-29 13:35 | NUR ---
I have reviewed this patient and I concur with the Shift Assessment completed by the Licensed Practical Nurse today this shift.
[2019-06-29 14:16] VITALS: Ht 175.3 cm; Wt 64.6 kg
[2019-06-29 18:10] VITALS: BP 102/70
[2019-06-29 20:00] VITALS: BP 103/61
--- NOTE | 2019-06-29 23:22 | NUR ---
REPORT RECIEVED AND ROUNDING COMPLETE. PATIENT SITTING UP IN BED TALKING ON THE PHONE, HE STATES HE HAS NO NEEDS AT THIS TIME. PATIENT HAS A LEFT PIV RUNNING ABX AT THIS TIME. PIV SHOWS NO S/SX OF INFILTRATION. PATIENT SHOWS NO S/SX OF DISTRESS AT THIS TIME. CALL LIGHT WITHIN REACH AND BED IN LOWEST LOCKED POSITION.
[2019-06-30] VITALS: BP 106/71
--- NOTE | 2019-06-30 01:17 | NUR ---
I have reviewed this patient and I concur with the Shift Assessment completed by the Licensed Practical Nurse today this shift.
[2019-06-30 04:00] VITALS: BP 115/72
[2019-06-30 05:39] LABS: BASOPHILS 0.4 % (0-2); EOSINOPHILS 2.1 % (0-7); HEMATOCRIT 35.8 % (42.0-54.0); HEMOGLOBIN 11.6 g/dL (13.5-17.5); IMMATURE GRANULOCYTES 0.2 % (0-5); LYMPHOCYTES 36.8 % (15-50); MCH 29.7 pg (26.0-34.0); MCHC 32.4 g/dL (31.0-37.0); MCV 91.6 fL (80.0-100.0); MEAN PLATELET VOLUME 10.2 fL (7.4-10.4); MONOCYTES 8.3 % (2-11); NEUTROPHILS 52.2 % (40-80); RBC 3.91 10x6/uL (4.20-6.10); RDW 12.6 % (11.5-14.5)
[2019-06-30 06:38] LABS: AMYLASE - SERUM 159 U/L (25-115); CALCIUM 7.9 mg/dL (8.5-10.1); CARBON DIOXIDE 29.2 mmol/L (21.0-32.0); CHLORIDE - SERUM 100 mmol/L (98-107); CREATININE - SERUM 0.7 mg/dL (0.6-1.3); LIPASE 624 U/L (73-393); POTASSIUM - SERUM 4.4 mmol/L (3.5-5.1); SODIUM 135 mmol/L (136-145); eGFR NON AFRICAN AMERICAN > 90 mL/min (90-120)
[2019-06-30 06:41] LABS: CALC OSMOLALITY 284 mosm/kg (275-300); GLUCOSE 366 mg/dL (74-106); UREA NITROGEN 13 mg/dL (7-18)
[2019-06-30 06:52] LABS: PLATELET COUNT 270 10x3/uL (130-400); WBC 5.7 10x3/uL (4.8-10.8)
--- NOTE | 2019-06-30 07:00 | NUR ---
RECEIVED REPORT. ASSUMED CARE OF PATIENT. PATIENT RESTING IN BED WITH EYES CLOSED, EASILY AROUSED. IV FLUIDS INFUSING ORDERED. CANDY WRAPPERS NOTED ON BEDSIDE TABLE AND IN FLOOR. NO DISTRESS. CALL LIGHT WITHIN REACH.
--- NOTE | 2019-06-30 07:18 | NUR ---
FSBS 366. 16 UNITS HUMALOG ADMINISTERED PER SLIDING SCALE. PATIENT CONSUMING KITKAT CANDY IN ROOM.
[2019-06-30 07:36] VITALS: BP 112/71
--- NOTE | 2019-06-30 09:14 | NUR ---
MEDICATED FOR PAIN AT THIS TIME. NO DISTRESS.
--- NOTE | 2019-06-30 10:10 | NUR ---
PATIET REFUSED TO LET BIANCA (BINDU) CLEAN HIS ROOM AT THIS TIME.
[2019-06-30 11:34] VITALS: BP 139/94
--- NOTE | 2019-06-30 12:16 | NUR ---
FSBS 226. 8 UNITS HUMALOG ADMINISTERED PER SLIDING SCALE. MEDICATED FOR ANXIETY AT THIS TIME.
--- NOTE | 2019-06-30 14:24 | NUR ---
MEDICATED FOR PAIN AT THIS TIME. NO DISTRESS.
[2019-06-30 15:11] VITALS: BP 132/81
--- NOTE | 2019-06-30 17:31 | NUR ---
FSBS 226. 8 UNITS HUMALOG ADMINISTERED PER SLIDING SCALE.
[2019-06-30 20:00] VITALS: BP 133/86
--- NOTE | 2019-06-30 20:50 | NUR ---
EVENING ROUNDS COMPLETED. VSS, AAOX4, NO S/S OF DISTRESS. ALTHOUGH PT C/O PAIN IN LEFT LOWER ABDOMEN. PM MEDS GIVEN ALONGSIDE PRN MORPHINE. PT VOICED THANKS. PT DENIES ANY FURTHER NEEDS FOR COMFORT CARE. WILL CPOC. CL WITHIN REACH.
[2019-07-01] VITALS: BP 113/77
[2019-07-01 04:00] VITALS: BP 127/92
[2019-07-01 06:19] LABS: BASOPHILS 0.3 % (0-2); EOSINOPHILS 1.3 % (0-7); HEMATOCRIT 36.1 % (42.0-54.0); HEMOGLOBIN 11.7 g/dL (13.5-17.5); IMMATURE GRANULOCYTES 0.3 % (0-5); LYMPHOCYTES 25.5 % (15-50); MCH 29.5 pg (26.0-34.0); MCHC 32.4 g/dL (31.0-37.0); MCV 91.2 fL (80.0-100.0); MONOCYTES 6.7 % (2-11); NEUTROPHILS 65.9 % (40-80); PLATELET COUNT 269 10x3/uL (130-400); RBC 3.96 10x6/uL (4.20-6.10); RDW 12.6 % (11.5-14.5)
[2019-07-01 06:33] LABS: WBC 7.6 10x3/uL (4.8-10.8)
[2019-07-01 06:38] LABS: AMYLASE - SERUM 127 U/L (25-115); CALCIUM 7.9 mg/dL (8.5-10.1); CARBON DIOXIDE 28.4 mmol/L (21.0-32.0); CHLORIDE - SERUM 105 mmol/L (98-107); LIPASE 495 U/L (73-393); SODIUM 139 mmol/L (136-145); UREA NITROGEN 10 mg/dL (7-18)
[2019-07-01 06:43] LABS: CALC OSMOLALITY 277 mosm/kg (275-300); CREATININE - SERUM 0.5 mg/dL (0.6-1.3); GLUCOSE 119 mg/dL (74-106); POTASSIUM - SERUM 3.7 mmol/L (3.5-5.1); eGFR NON AFRICAN AMERICAN > 90 mL/min (90-120)
[2019-07-01 08:00] VITALS: BP 120/84
--- NOTE | 2019-07-01 10:44 | NUR ---
PT WITH LARGE HARD BM. MEDICATED WITH PAIN MED AND ANXIETY MEDS. SITTING ON SIDE OF BED EATING BECKY CRACKERS.
[2019-07-01 11:36] VITALS: BP 111/76
[2019-07-01 16:04] VITALS: BP 119/79
[2019-07-01 20:15] VITALS: BP 117/74
--- NOTE | 2019-07-01 20:59 | NUR ---
EVENING ROUNDS COMPLETED. VSS, AAOX4, NO S/S OF DISTRESS. ALTHOUGH PT HAS C/O AND PAIN A 10/10. PRN PO NORCO, AND ATIVAN GIVEN ALONGSIDE EVENING MEDS. FSBS 165, TREATED PER SLIDING SCALE. PT DENIES ANY FURTHER NEEDS AT THIS TIME WILL CPOC. CL WITHIN REACH, BED IN LOW SR UP X2.
[2019-07-02] VITALS: BP 119/88
--- NOTE | 2019-07-02 03:36 | NUR ---
PT APPEARS AGGITATED. PT REFUSED ATBX, VITAL SIGN, AND FSBS. HE STATES HE WANTS TO SLEEPS AND HE DOES NOT WANT TO BE DISTURBED.
[2019-07-02 05:23] LABS: BASOPHILS 0.2 % (0-2); EOSINOPHILS 2.9 % (0-7); HEMATOCRIT 34.6 % (42.0-54.0); HEMOGLOBIN 11.3 g/dL (13.5-17.5); IMMATURE GRANULOCYTES 0.2 % (0-5); LYMPHOCYTES 44.5 % (15-50); MCHC 32.7 g/dL (31.0-37.0); MCV 91.8 fL (80.0-100.0); MEAN PLATELET VOLUME 10.2 fL (7.4-10.4); MONOCYTES 8.6 % (2-11); NEUTROPHILS 43.6 % (40-80); PLATELET COUNT 251 10x3/uL (130-400); RBC 3.77 10x6/uL (4.20-6.10); RDW 12.8 % (11.5-14.5)
[2019-07-02 05:33] LABS: WBC 4.9 10x3/uL (4.8-10.8)
[2019-07-02 05:34] LABS: CALC OSMOLALITY 284 mosm/kg (275-300); CALCIUM 8.3 mg/dL (8.5-10.1); CARBON DIOXIDE 31.4 mmol/L (21.0-32.0); CHLORIDE - SERUM 107 mmol/L (98-107); CREATININE - SERUM 0.6 mg/dL (0.6-1.3); GLUCOSE 159 mg/dL (74-106); SODIUM 142 mmol/L (136-145); UREA NITROGEN 11 mg/dL (7-18); eGFR NON AFRICAN AMERICAN > 90 mL/min (90-120)
[2019-07-02 05:37] LABS: AMYLASE - SERUM 94 U/L (25-115); LIPASE 320 U/L (73-393)
[2019-07-02 05:38] LABS: POTASSIUM - SERUM 4.6 mmol/L (3.5-5.1)
--- NOTE | 2019-07-02 07:48 | NUR ---
ASSESSMENT DONE. DENIES NEEDS
[2019-07-02 09:42] VITALS: BP 111/85
[2019-07-02] MEDS ORDERED: CREON DR 6,0001 EACH PO (10:09)
--- NOTE | 2019-07-02 10:57 | NUR ---
PATIENT HAS NOT HAD A FLU SHOT WHEN ASKED UPON ADMIT. WHEN QUESTIONED, HE REFUSED TO TAKE ONE UPON DISCHARGE.
--- NOTE | 2019-07-02 12:08 | NUR ---
DC GIVEN TO PT
--- NOTE | 2019-07-02 13:40 | NUR ---
I have reviewed this patient and I concur with the Shift Assessment completed by the Licensed Practical Nurse today this shift.
--- NOTE | 2019-07-02 13:53 | MORECARE ---
CASE MANAGEMENT DISCHARGE SUMMARY PATIENT: KRISTI DUONG UNIT: [id number] ADM DATE: 06/28/19 AGE: 38 : 82 SEX: M ROOM/BED: D.2111 AUTHOR: CARY,DOC PHYSICIAN: REFERRING PHYSICIAN: RODOLFO CORONA MD DATE OF SERVICE: 07/02/19 Discharge Plan Patient Name: KRISTI DUONG Facility: [facility]:[place] : 1980 Planned Disposition: Home Anticipated Discharge Date: 07/02/19 Discharge Date: Expected LOS: 4 Initial Reviewer: [email or web address] Initial Review Date: 07/02/2019 Generated: 07/02/19 2:52 pm Comments DCP- Discharge Planning Updated by [email or web address]: Ernesto Padilla on 07/02/19 12:[address] Patient Name: KRISTI DUONG Admission Status: ER Accout number: [id number] Admission Date: 06-28-2019 : 1980 Admission Diagnosis: Attending: RODOLFO CORONA Current LOS: 4 Anticipated DC Date: 07-02-2019 Planned Disposition: Home [facility] Discharge Planning Comments: CM MET WITH PT IN ROOM TO DISCUSS DISCHARGE PLANNING AND NEEDS. PT REPORTS LIVING AT HOME INDEPENDENTLY AND ALONE. PT HAS NO MEDICAL EQUIPMENT AND NO OUTSIDE SERVICES ASSISTING IN THE HOME. CM DISCUSSED AVAILABILITY OF HOME HEALTH, REHAB SERVICES AND MEDICAL EQUIPMENT. PT DENIES DISCHARGE NEEDS, REPORTS HIS FRIEND WILL PICK HIM UP FOR DISCHARGE HOME. COBOL DEVELOPER NURSE NOTIFIED. Manufacturing Engineer Chief: Ernesto Padilla DCPIA - Discharge Planning Initial Assessment Updated by [email or web address]: Ernesto Padilla on 07/02/19 1:50 pm * Is the patient Alert and Oriented? Yes * How many steps to enter\exit or inside your home? * PCP DR. OKSANA SON * Pharmacy [facility] * Preadmission Environment Home Alone * ADLs Independent * Equipment None * Other Equipment NO MEDICAL EQUIPMENT PROVIDER PREFERENCE * List name and contact numbers for known caregivers / representatives who currently or will assist patient after discharge: FRANCISCO J WILLAM, FRIEND, * Verbal permission to speak to the caregivers and representatives has been obtained from the patient. N/A * Community resources currently utilized None * Please name any agencies selected above. NONE * Additional services required to return to the preadmission environment? No * Can the patient safely return to the preadmission environment? Yes * Has this patient been hospitalized within the prior 30 days at any hospital? No Patient Name: KRISTI DUONG Page [id number] at 1353 All edits/amendments must be made on the electronic document DICTATION DATE: 07/02/19 1352 SUPERVISOR BLOOMING MILL: CLIFF 07/02/19 1352 RPT#: [id number] DC DATE: STATUS: ADM IN [facility] [address] [place] [address] END OF REPORT
--- NOTE | 2019-07-02 15:16 | NUR ---
DC HOME PER PERSONAL CAR
== END 2019-07-02 15:16 | disposition home or self-care (01) | DRG 871 ==
LOC: D.ER 08:49 → D.M2 13:04
PROVIDERS: Emergency Medicine; Family Medicine; ADMIT Internal Medicine Nephrology; ATTEND Internal Medicine Nephrology
DX: A41.9 Sepsis, unspecified organism (principal); K85.90 Acute pancreatitis without necrosis or infection, unspecified; E87.1 Hypo-osmolality and hyponatremia; F17.213 Nicotine dependence, cigarettes, with withdrawal; E10.9 Type 1 diabetes mellitus without complications; I10 Essential (primary) hypertension; F41.8 Other specified anxiety disorders